=== PATIENT | female | born 1975 | race Caucasian/White ===

== ENCOUNTER 2021-02-04 08:23 | Outpatient (REF) | payer BC, SELFPAY ==
[2021-02-04 14:30] LABS: HGB 13.7 g/dL (11.2-15.7); MCH 29.8 pg (27.0-33.0); MCHC 32.6 % (32.0-36.0); MCV 91.3 fL (80-95); MPV 11.8 fL (8.0-11.0); Platelet Count 208 10^3/uL (130-400); RDW 11.3 % (11.7-14.6); RDW-SD 38.2 fL; WBC 4.99 10^3/uL (4.4-10.8)
[2021-02-04 14:48] LABS: Anion Gap 8.6 mmol/L (3-11); BUN 10 mg/dL (7-18); CO2 25.4 mmol/L (21.0-32.0); CREATININE 0.9 mg/dL (0.55-1.02); Calcium 8.9 mg/dL (8.5-10.1); Calculated LDL 134 mg/dL (<100); Chloride 107 mmol/L (98-107); Cholesterol 209 mg/dL (<200); Glucose 89 mg/dL (74-106); HDL Cholesterol 62 mg/dL (40-60); Potassium 4.6 mmol/L (3.5-5.1); Sodium 141 mmol/L (136-145); Triglyceride 69 mg/dL (<150)
== END 2021-02-04 08:24 | disposition home or self-care (01) ==
LOC: NCHCN 08:23
PROVIDERS: Visit Provider Nurse Practitioner Family
DX: Z00.00 Encounter for general adult medical examination without abnormal findings (principal); Z13.220 Encounter for screening for lipoid disorders
CPT/HCPCS: 80048; 80061; 85027

== ENCOUNTER 2021-04-07 17:57 | Outpatient (REF) | payer BC, SELFPAY ==
--- NOTE | 2021-04-07 16:30 | PAPFT_PTH ---
PATIENT: Bonny Peng LOC: [facility]#:[id number] AGE/SX: 46/F ROOM: RE04/07/[address]: Cyndy Hannon : 1975 BED: DIS: 04/07/2021 SPEC #: [id number] RECD: 04/08/21 12:43 STATUS: ALLA [place] #: [id number] SACHA: 04/07/21 16:[address]: Cyndy Hannon DEPT: [facility] Cytology RECD BY: Shell Dent Tissues: 1 - CX/ENDOCX FOR PAP SMEARS Procedures: PAP THIN PREP/[facility] Screening HPV DNA PROBE Comments: [id number]
== END 2021-04-07 17:58 | disposition home or self-care (01) ==
LOC: NCHCN 17:57
PROVIDERS: Visit Provider Nurse Practitioner Family
DX: Z12.4 Encounter for screening for malignant neoplasm of cervix (principal); Z11.51 Encounter for screening for human papillomavirus (HPV)
CPT/HCPCS: 88142; 87624

== ENCOUNTER 2021-11-18 17:47 | Outpatient (REF) | payer BC, SELFPAY ==
--- NOTE | 2021-11-18 17:20 | SKI_PTH ---
PATIENT: Bonny Peng LOC: [facility] #:[id number] AGE/SX: 46/F ROOM: RE11/18/[address]: Mark Schaefer : 1975 BED: DIS: 11/18/2021 SPEC #: [id number] RECD: 11/22/21 12:15 STATUS: ALLA REKarma #: [id number] SACHA: 11/18/21 17:[address]: Mark Schaefer DEPT: Surgical Specimen RECD BY: Peral Solorzano ENTERED: 11/22/21 12:16 SP TYPE: RAHEEM TOBIN DR: Cyndy Hannon Tissues: 1 - SKIN BIOPSY(SHAVE/PUNCH) Procedures: SKIN LEVEL 4 Comments: [id number]
== END 2021-11-18 17:48 | disposition home or self-care (01) ==
LOC: NCHCN 17:47
PROVIDERS: PCP Nurse Practitioner Family; Visit Provider Nurse Practitioner Family
DX: L81.4 Other melanin hyperpigmentation (principal); L85.8 Other specified epidermal thickening
CPT/HCPCS: 88305

== ENCOUNTER 2022-01-17 15:05 | Outpatient (CLI) | payer BC, SELFPAY ==
--- NOTE | 2022-01-17 14:15 | DI.RAD_ITS ---
Exam(s) XR SHOULDER LT COMPLETE 2+V EXAM: XR SHOULDER LT COMPLETE 2+V CLINICAL HISTORY: left shoulder pain. TECHNIQUE: 2D digital imaging was performed of the left shoulder. Two images were obtained. AP and axillary views were obtained. COMPARISON: No exams were available for comparison FINDINGS: BONES: No acute fracture is present. No bony destructive lesion is seen. JOINTS: No dislocation present. SOFT TISSUE: Normal. IMPRESSION: Unremarkable radiographs of the left shoulder. DATA REPOSITORY: RADIATION DOSE DELIVERED:
== END 2022-01-17 15:06 | disposition home or self-care (01) ==
LOC: DIORS 15:05
PROVIDERS: PCP Student in an Organized Health Care Education/Training Program; Referring Provider Student in an Organized Health Care Education/Training Program; Visit Provider Student in an Organized Health Care Education/Training Program
DX: M25.512 Pain in left shoulder (principal)
CPT/HCPCS: 73030

== ENCOUNTER → 2022-01-25 01:24 | Outpatient (CLI) | payer BC, SELFPAY ==
--- NOTE | 2022-01-25 08:15 | DI.MAMMO_ITS ---
Exam(s) MAMMO SCREENING EXAM: MAMMO SCREENING CLINICAL HISTORY: screening,z12.39 TECHNIQUE: Mammograms were interpreted according to the usual protocol including computer analysis w [employer] CAD system, tomosynthesis and C-view imaging. COMPARISON: FINDINGS: The breasts are heterogeneously dense. There is no dominant mass or clumped microcalcification ident ified in either breast. No prior examinations are available for comparison. IMPRESSION: No specific evidence of malignancy at this time. Routine screening examinations are suggested at yea rly intervals in this age group according to the ACS ACR guidelines. BI-RADS Category 1 - Negative Breast Density - Category C - Heterogeneously dense
== END ==
PROVIDERS: PCP Student in an Organized Health Care Education/Training Program; Visit Provider Student in an Organized Health Care Education/Training Program
DX: Z12.31 Encounter for screening mammogram for malignant neoplasm of breast (principal); R92.8 Other abnormal and inconclusive findings on diagnostic imaging of breast
CPT/HCPCS: 77063; 77067

== ENCOUNTER 2022-08-10 01:55 | Outpatient (CLI) | payer BC, SELFPAY ==
[2022-08-10 07:57] LABS: Anion Gap 5.6 mmol/L (3-11); BUN 11 mg/dL (7-18); CO2 30.4 mmol/L (21.0-32.0); CREATININE 0.9 mg/dL (0.55-1.02); Calcium 9.2 mg/dL (8.5-10.1); Calculated LDL 122 mg/dL (<100); Chloride 108 mmol/L (98-107); Cholesterol 209 mg/dL (<200); Estimated GFR 78.86 (mL/min/1.73m2); Glucose 100 mg/dL (74-106); HDL Cholesterol 77 mg/dL (40-60); Potassium 4.2 mmol/L (3.5-5.1); Sodium 144 mmol/L (136-145); TSH (W/Ref FT4) 2.86 uIU/mL (0.36-3.74); Triglyceride 51 mg/dL (<150)
== END 2022-08-10 01:56 | disposition home or self-care (01) ==
LOC: LBO 01:56
PROVIDERS: Absent Provider Student in an Organized Health Care Education/Training Program; PCP Student in an Organized Health Care Education/Training Program; Referring Provider Student in an Organized Health Care Education/Training Program; Visit Provider Student in an Organized Health Care Education/Training Program
DX: E86.0 Dehydration (principal); Z13.220 Encounter for screening for lipoid disorders; Z83.49 Family history of other endocrine, nutritional and metabolic diseases
CPT/HCPCS: 36415; 80048; 80061; 84443

== ENCOUNTER 2022-08-10 14:31 | Outpatient (CLI) | payer BC, SELFPAY ==
--- NOTE | 2022-08-10 14:30 | RT.EKG_ITS ---
APPROVED REPORT Exam: Resting ECG Reason for Exam: Pre Op Patient Location: O HR:56 bpm ECG Measurements Heart Rate 56 AXIS FL 144 P 45 QRSd 85 QRS -31 QT 412 T 28 QTc 398 Conclusion Sinus rhythm...normal P axis, V-rate 50- 99 Left axis deviation...QRS axis (-30,-90) Low voltage, extremity leads...all extremity leads <0.5mV
== END 2022-08-10 14:32 | disposition home or self-care (01) ==
LOC: DI.KIM 14:33
PROVIDERS: PCP Student in an Organized Health Care Education/Training Program; Visit Provider Student in an Organized Health Care Education/Training Program
DX: Z01.818 Encounter for other preprocedural examination (principal)
CPT/HCPCS: 93010

== ENCOUNTER 2025-01-07 09:55 | Outpatient (CLI) | payer BC, SELFPAY ==
[2025-01-08 10:34] LABS: Lyme Ab w Rflx to Lyme Confirm Negative (Negative)
[2025-01-10 19:43] LABS: B. miyamotoi PCR Negative (Negative); Babesia divergens/MO-1 Negative (Negative); Ehrlichia muris eauclairensis Negative (Negative)
== END 2025-01-07 09:56 | disposition home or self-care (01) ==
LOC: LBO 09:55
PROVIDERS: PCP Family Medicine; Visit Provider Family Medicine
DX: R53.83 Other fatigue (principal)
CPT/HCPCS: 36415; 87798; 86618